=== PATIENT | female | born 2000 | race Two or more races ===

== ENCOUNTER 2021-11-14 14:56 | Emergency (ER) | payer OTHER ==
[~2021-11-14] VITALS: Ht 167.6 cm; Wt 65.0 kg
[2021-11-14 15:16] VITALS: BP 118/66
== END 2021-11-14 18:25 | disposition home or self-care (01) ==
LOC: EMS 15:00
DX: S61.215A Laceration without foreign body of left ring finger without damage to nail, initial encounter (principal); W45.8XXA Other foreign body or object entering through skin, initial encounter; Y93.89 Activity, other specified; Y92.89 Other specified places as the place of occurrence of the external cause; Y99.0 Civilian activity done for income or pay
CPT/HCPCS: 12001; 99282; Z7502